=== PATIENT | female | born 1965 | race Caucasian/White ===

== ENCOUNTER 2016-09-23 16:40 | Emergency (ER) | payer BC ==
[~2016-09-23] VITALS: Ht 167.6 cm; Wt 70.3 kg
[~2016-09-23 16:40] MED LIST: ELIMITE 5% CREA60 GM EXT; ELIMITE 5% CREA60 GM TOPIC; MEDROL DOSEPAK4 MG PO; NKM; NORCO 5-325 TA1 EACH PO; TRAMADOL HCL50 MG ORAL
[2016-09-23] MEDS ORDERED: Morphine Sulfate 4mg/ml Inj IVP ONE (17:00)
[2016-09-23] MEDS ORDERED: Famotidine 20 MG/ 2ML VIAL IVP ONE (17:00)
[2016-09-23 17:24] LABS: BASOPHILS % (AUTO) 0.9 % (0.0-2.0); EOSINOPHILS % (AUTO) 1.6 % (0.0-3.0); LYMPHOCYTES % (AUTO) 24.4 % (20.0-45.0); MEAN CORPUSCULAR HEMOGLOBIN 31.5 PG (27.0-31.0); MEAN CORPUSCULAR HGB CONC 33.8 G/DL (32.0-36.0); MEAN CORPUSCULAR VOLUME 93 FL (80-99); MEAN PLATELET VOLUME 9.8 FL (6.5-10.1); NEUTROPHILS % (AUTO) 67.2 % (45.0-75.0); PLATELET COUNT 234 K/UL (150-450); RED BLOOD COUNT 4.54 M/UL (4.20-5.40); RED CELL DISTRIBUTION WIDTH 13.2 % (11.6-14.8); WHITE BLOOD COUNT 10.8 K/UL (4.8-10.8)
[2016-09-23] MEDS ORDERED: Ketorolac 30mg Inj ONE (17:27)
[2016-09-23] MEDS ORDERED: Ketorolac 30mg Inj IV ONE (17:30)
[2016-09-23 17:40] LABS: ALANINE AMINOTRANSFERASE 12 U/L (3-33); ALBUMIN/GLOBULIN RATIO 1.8 (1.0-2.7); ANION GAP 17 (5-15); ASPARTATE AMINO TRANSFERASE 11 U/L (5-40); CALCIUM 9.4 mg/dL (8.6-10.2); CARBON DIOXIDE 24 mEQ/L (20-30); CHLORIDE 98 mEQ/L (98-107); CREATININE 0.8 mg/dL (0.5-0.9); GLOMERULAR FILTRATION RATE > 60 mL/min (>60); HEMOLYSIS 4; LIPASE 27 U/L (< 60); POTASSIUM 3.8 mEQ/L (3.4-4.9); SODIUM 139 mEQ/L (135-145); TOTAL PROTEIN 7.4 g/dL (6.6-8.7); TROPONIN I < 0.30 ng/mL (<=0.30)
[2016-09-23 17:58] LABS: APPEARANCE,URINE CLEAR; KETONES,URINE NEGATIVE (NEGATIVE); NITRITE,URINE NEGATIVE (NEGATIVE); PH,URINE 6 (4.5-8.0); PROTEIN,URINE NEGATIVE (NEGATIVE); UROBILINOGEN,URINE NORMAL MG/DL (0.0-1.0)
[2016-09-23 18:02] LABS: LEUKOCYTE ESTERASE ,URINE NEGATIVE (NEGATIVE)
[2016-09-23 19:01] VITALS: BP 118/75
[2016-09-23 20:47] VITALS: BP 115/79
--- NOTE | 2016-09-23 20:51 | Emergency Room Report ---
History of Present Illness General Chief Complaint: Abdominal Pain Source: Patient, Medical Record Present Illness HPI 51YO F with 1-2 days generalized abd pain without nausea/vomiting/diarrhea/fever /chills. Took ibuprofen without improvement. States Tylenol doesnt work. Had this previously last year, CT showed cholelithiasis. Didnt followup with GenSurg. Denies other medical problems. Allergies: Uncoded Allergies: CT contrast (Allergy, Unknown, Itching, 11/22/15) Patient History Past Medical History: other - Cholelithiasis Past Surgical History: none Pertinent Family History: none Social History: Denies: alcohol use, drug use, smoking Last Menstrual Period: 08/2016 Now: No : 0 Para: 0 Immunizations: UTD Reviewed Nursing Documentation: PMH: Agreed, PSxH: Agreed Review of Systems All Other Systems: negative except mentioned in HPI Physical Exam Vital Signs Date Time Temp Pulse Resp B/P Pulse Ox O2 Delivery O2 Flow Rate FiO2 09/23/16 16:49 98.4 88 16 126/56 100 Room Air Sp02 EP Interpretation: reviewed, normal General Appearance: normal inspection, well appearing, no apparent distress, alert, GCS 15, non-toxic Head: normocephalic, atraumatic Eyes: bilateral eye EOMI, bilateral eye PERRL ENT: normal ENT inspection, hearing grossly normal, normal voice Neck: normal inspection, full range of motion, supple, no bony tend Respiratory: normal inspection, lungs clear, normal breath sounds, no respiratory distress, no retraction, no wheezing Cardiovascular #1: regular rate, rhythm, no edema Gastrointestinal: normal inspection, normal bowel sounds, soft, no guarding, no hernia, other - epigastric ttp. No rebound or guarding Genitourinary: no CVA tenderness Musculoskeletal: normal inspection, back normal, normal range of motion, Deanna' s Sign negative Neurologic: normal inspection, alert, oriented x3, responsive, conductor/brakeman III-XII nml as tested, motor strength/tone normal, speech normal Psychiatric: normal inspection, judgement/insight normal, mood/affect normal Skin: normal inspection, normal color, no rash Medical Decision Making Diagnostic Impression: Primary Impression: Abdominal pain Qualified Codes: R10.13 - Epigastric pain ER Course CT: ?GB wall thickening. + stones Sono: No cholecystitis on tech report No leuks. Afebrile. Likely just cholelithiasis, +/-GERD Will Rx Pepcid Patient also requesting 2 days off from work Advised to F/up with PMD for gen-surg referral for cholelithiasis DC home Last Vital Signs Date Time Temp Pulse Resp B/P Pulse Ox O2 Delivery O2 Flow Rate FiO2 09/23/16 20:47 98.3 64 15 115/79 99 Room Air Status: improved Disposition: AGAINST MEDICAL ADVICE Scripts Methocarbamol* (ROBAXIN-750*) 750 Mg Tablet 750 MG PO TID, #30 TAB 0 Refills Prov: THERESA OLSON M.D. 09/23/16 Famotidine (PEPCID) 20 Mg Tablet 20 MG ORAL BID, #60 TAB 0 Refills Prov: THERESA OLSON M.D. 09/23/16 Referrals: NON PHYSICIAN (PCP) THERESA OLSON M.D. Sep 23, 2016 20:51
[2016-09-23] MEDS ORDERED: PEPCID20 MG ORAL (20:55)
[2016-09-23] MEDS ORDERED: ROBAXIN-750750 MG PO (20:59)
[2016-09-23 21:06] VITALS: BP 115/79
--- NOTE | 2016-09-24 09:07 | Diagnostic Imaging Report ---
Indication: Abdominal pain Technique: Ultrasound of the abdomen. Comparison: CT abdomen and pelvis 10/03/16 Findings: The pancreas is incompletely visualized. Visualized portions are unremarkable. Liver measures 17.8 cm and demonstrates normal echogenicity. No focal liver lesions are identified. Visualized portions of the main portal vein and the hepatic veins are grossly unremarkable although incompletely evaluated. Gallstones are present. Gallbladder wall thickness is normal. The common bile duct measures 7 mm. Bilateral kidneys demonstrate normal echogenicity. No focal renal lesions are seen. There is no hydronephrosis. No echogenic renal stones are identified. The spleen is normal in size and echogenicity. The visualized aorta is normal in caliber. Visualized portions of the inferior vena cava are unremarkable. Impression: Cholelithiasis. Gallbladder wall thickness within normal limits. Sonographic Chavis sign reportedly positive. Clinical correlation recommended.
--- NOTE | 2016-09-24 10:05 | Diagnostic Imaging Report ---
Indication: Abdominal pain Technique: CT scan of the abdomen and pelvis utilizing automated exposure control without intravenous or oral contrast. Axial, sagittal and coronal images were obtained. CT dose: Total DLP 630 mGycm; CTDI vol 12.8 mGy Comparison: 11/22/15 Findings: Evaluation of the solid organs is limited without intravenous contrast material. Gallstones are present with mild gallbladder wall thickening. The adrenal glands, spleen and pancreas are unremarkable. The kidneys are unremarkable. The small bowel loops are normal in caliber. There is a small hiatal hernia. The appendix is normal. There is trace fluid in the pelvis. Uterus and adnexa appear grossly unremarkable. The bladder is grossly unremarkable. The abdominal aorta is normal in caliber. Degenerative changes of the spine are present. Impression: Cholelithiasis with mild apparent gallbladder wall thickening. Clinical correlation recommended for cholecystitis. HIDA scan recommended for further evaluation as indicated. Trace fluid in the pelvis. Normal appendix. Other findings as above. Findings are concordant with the preliminary report. The CT scanner at [facility] is accredited by the [employer] and the scans are performed using protocols designed to limit radiation exposure to as low as reasonably achievable to attain images of sufficient resolution adequate for diagnostic evaluation.
--- NOTE | 2016-09-28 16:18 | Cardiology Report ---
APPROVED REPORT EKG Measurement Heart [id number] Normal sinus rhythm Cannot rule out Anterior infarct, age undetermined Abnormal ECG
== END 2016-09-23 21:06 | disposition home or self-care (01) ==
LOC: EMR 17:22
DX: R10.84 Generalized abdominal pain (principal); R11.2 Nausea with vomiting, unspecified; K80.20 Calculus of gallbladder without cholecystitis without obstruction
CPT/HCPCS: 36415; 74176; 76700; 80053; 81003; 81025; 83690; 84484; 85025; 93005; 96374; 96375; 99284; J1885; J2405; S0028

== ENCOUNTER 2016-11-09 05:44 | Observation (INO) | payer BC ==
[~2016-11-09] VITALS: Ht 167.6 cm; Wt 69.9 kg
[2016-11-09] VITALS (19 sets, daily range): BP systolic 112–152; BP diastolic 66–91
[~2016-11-09 05:44] MED LIST changes: +PEPCID20 MG ORAL; +ROBAXIN-750750 MG PO
[2016-11-09] MEDS ORDERED: Bupivacaine w/Epi 0.25% 30ml Vial INJ ONE (06:50)
[2016-11-09] MEDS ORDERED: Iothalamate Meglumine 60% 30ML INJ ONE (06:50)
[2016-11-09] MEDS ORDERED: LR 1000ml 1,000 ML IV SCH ×2 (07:05→15:15)
[2016-11-09] MEDS ORDERED: Propofol 10mg/ml 20ml IV ONE (07:30)
[2016-11-09] MEDS ORDERED: Neostigmine 1mg/ml 10ml Inj ONE (07:30)
[2016-11-09] MEDS ORDERED: LR 1000ml ONE (07:30)
[2016-11-09] MEDS ORDERED: Dexamethasone 4mg/ml vial ONE (07:30)
[2016-11-09] MEDS ORDERED: Nimbex 2mg/ml Inj 10ML IVP ONE (07:30)
[2016-11-09] MEDS ORDERED: Glycopyrrolate 0.2mg/ml 1ml Vial ONE (07:30)
[2016-11-09] MEDS ORDERED: Sterile Water Irrig 1000ml IRRIG ONE (07:30)
[2016-11-09] MEDS ORDERED: fentaNYL 100 mcg/2 mL IV ONE (07:30)
[2016-11-09] MEDS ORDERED: NS Irrig 1000ml ONE (07:30)
[2016-11-09] MEDS ORDERED: Lidocaine 1% MPF 10mg/ml 5ml ONE (07:30)
--- NOTE | 2016-11-09 07:38 | Pre-Procedure Note/Attestation ---
Pre-Procedure Note/Attestation Complete Prior to Procedure Planned Procedure: not applicable Procedure Narrative: laparoscopic cholecystectomy, possible open possible intraoperative cholangiogram Indications for Procedure Pre-Operative Diagnosis: abdominal pain chololithiasis Attestation I attest that I discussed the nature of the procedure; its benefits; risks and complications; and alternatives (and the risks and benefits of such alternatives ), prior to the procedure, with the patient (or the patient's legal corporate sales representative). I attest that, if there was a reasonable possibility of needing a blood transfusion, the patient (or the patient's legal corporate sales representative) was given the [facility] standardized written summary, pursuant to the [place] Blood Safety Act ([place] Health and Safety Code # 1645, as amended). I attest that I re-evaluated the patient just prior to the surgery and that there has been no change in the patient's H&P, except as documented below:none WOOD KRUSE November 09, 2016 07:38
[2016-11-09] MEDS ORDERED: LR 1000ml 1,000 ML IVLG SCH (08:11)
--- NOTE | 2016-11-09 08:11 | Anethesia Preoperative Eval ---
Anesthesia Pre-op PMH/ROS General Date of Evaluation: November 09, 2016 Time of Evaluation: 07:31 Anesthesiologist: Samuel ASA Score: ASA 2 Mallampati Score Class I : Soft palate, uvula, fauces, pillars visible Class II: Soft palate, uvula, fauces visible Class III: Soft palate, base of uvula visible Class IV: Only hard plate visible Mallampati Classification: Class II Surgeon: Shiva Diagnosis: Abd Pain Surgical Procedure: Laparoscopic Cholecystectomy Anesthesia History: none Family History: no anesthesia problems Allergies: Uncoded Allergies: CT contrast (Allergy, Severe, Itching, 11/09/16) itching,LIPS SWOLLEN Medications: see eMAR Past Medical History Gastrointestinal/Genitourinary: Reports: GERD, other - Menopause 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 Exam Physician Exam Last Vital Signs Date Time Temp Pulse Resp B/P Pulse Ox O2 Delivery O2 Flow Rate FiO2 11/09/16 07:18 98.1 69 20 112/66 98 Room Air Constitutional: NAD Neurologic: CN 2-12 intact Cardiovascular: RRR Respiratory: CTA Gastrointestinal: S/NT/ND Airway Exam Mallampati Score: Class II MO: full ROM: full Teeth: intact Anesthesia Pre-op A/P Labs Urine Test Test 11/09/16 06:50 Urine HCG, Qualitative Negative Risk Assessment & Plan Assessment: ASA 2 Plan: GA, BIS, Glidescope Status Change Before Surgery: No Pre-Antibiotics Dru Grams Ancef IV Given Within 1 Hr of Incision: Yes Time Given: 07:46 Nik Baker MD November 09, 2016 08:11
--- NOTE | 2016-11-09 08:14 | Immediate Post-Op Evaluation ---
Immediate Post-Op Evalulation Immediate Post-Op Evalulation Procedure: Laparoscopic Cholecystectomy Date of Evaluation: November 09, 2016 Time of Evaluation: 09:20 IV Fluids: 900 LR Blood Products: 0 Estimated Blood Loss: 10 Urinary Output: 0 Blood Pressure Systolic: 144 Blood Pressure Diastolic: 78 Pulse Rate: 72 Respiratory Rate: 16 O2 Sat by Pulse Oximetry: 99 Temperature (Fahrenheit): 97.7 Pain Score (1-10): 2 Nausea: No Vomiting: No Complications 0 Patient Status: awake, reacts, patent, extubated, none Hydration Status: adequate Dru Grams Ancef IV Given Within 1 Hr of Incision: Yes Time Given: 07:46 Nik Baker MD November 09, 2016 08:14
[2016-11-09] MEDS ORDERED: Ketorolac 60mg Inj IV PRN (08:15)
[2016-11-09] MEDS ORDERED: Metoclopramide 10mg/2ml Inj IVP PRN (08:15)
[2016-11-09] MEDS ORDERED: Hydromorphone 0.5mg/0.5ml inj IVP PRN ×2 (08:15→18:01)
[2016-11-09] MEDS ORDERED: Midazolam 2mg/2ml Inj IVP PRN (08:15)
[2016-11-09] MEDS ORDERED: Meperidine 25mg/0.5ml Inj IV PRN (08:15)
[2016-11-09] MEDS ORDERED: Norco 7.5mg/325mg tab ORAL PRN (08:15)
[2016-11-09] MEDS ORDERED: fentaNYL 100 mcg/2 mL IV PRN (08:15)
[2016-11-09] MEDS ORDERED: Ketorolac 30mg Inj IV PRN (08:15)
[2016-11-09] MEDS ORDERED: DiphenhydrAMINE 50mg/ml Inj IVP PRN (08:15)
[2016-11-09] MEDS ORDERED: Oxycodone/Acetaminophen 5-325 ORAL PRN (08:15)
[2016-11-09] MEDS ORDERED: Norco 5mg/325mg tab ORAL PRN (08:15)
[2016-11-09] MEDS ORDERED: LORazepam Inj 2mg/ml 1ml IV PRN (08:15)
[2016-11-09] MEDS ORDERED: Atropine Inj 1mg/10ml Syr IV PRN (08:15)
[2016-11-09] MEDS ORDERED: Surgicel 4in x 8in TOPIC ONE (08:43)
--- NOTE | 2016-11-09 09:14 | Brief Operative Note ---
Immediate Post Operative Note Operative Note Pre-op Diagnosis: abdominal pain chololithiasis Procedure: laparoscopic cholecystectomy Post-op Diagnosis: same Surgeon: adolfo kruse Medical Education Manager: suzan Castellanos Anesthesiologist: Roxanne dougherty Anesthesia: general, local Specimen: yes Complications: none Estimated Blood Loss: minimal Drains: none Implant(s) used?: No WOOD KRUSE November 09, 2016 09:14
[2016-11-09] MEDS ORDERED: Ketorolac 60mg Inj ONE (09:49)
[2016-11-09] MEDS ORDERED: Morphine Sulfate 4mg/ml Inj IVP PRN (15:15)
[2016-11-09] MEDS: D5 1/2NS w/KCl 20mEq 1,000 ML IV SCH (17:59)
[2016-11-09] MEDS ORDERED: Morphine Sulfate 2mg/ml Inj IVP PRN (18:01)
[2016-11-09] MEDS ORDERED: HYDROmorphone 1mg/ml Carpuject IVP PRN (18:01)
[2016-11-09] MEDS: Norco 5mg/325mg tab ORAL PRN (20:52)
--- NOTE | 2016-11-09 23:32 | Operative Note - Dictated ---
DATE OF OPERATION: 11/09/2016 SURGEON: Vito Shannon M.D. FOIL CUTTER PHYSICIAN: Edward Castellanos M.D. ANESTHESIOLOGIST: Nik Baker M.D. PREOPERATIVE DIAGNOSIS: Abdominal pain and cholelithiasis. POSTOPERATIVE DIAGNOSIS: Abdominal pain and cholelithiasis. PROCEDURE: Laparoscopic cholecystectomy. INDICATIONS: This is a very pleasant 51-year-old woman seen in our office referred by her primary physician because of recurrent episodes of right upper quadrant pain. The patient has had several ER visits. The ultrasound confirmed the presence of multiple gallstones. No history of pancreatitis or jaundice. The patient has been explained in detail the pathophysiology, indications for surgery, risks, benefits, complications including bleeding, infection, anesthetic complications, possible need to convert to an open procedure, possible injury to organs, or blood vessels and need for further treatment. She understands and agrees to proceed. OPERATIVE FINDINGS: The patient had a distended gallbladder with several adhesions to the omentum. The cystic duct was of normal caliber. Liver, stomach, and small bowel are normal. PROCEDURE IN DETAIL: The patient was identified in the preoperative holding area. The surgery was discussed. She was brought into the operating room just under general anesthesia endotracheal intubation. The abdomen was prepped with Betadine and draped in a sterile manner. Time-out was performed confirming the patient's position, procedure, anesthesia, antibiotic, and allergy status. An infraumbilical incision was made, through which was passed a Veress needle, checked with irrigation, aspiration, water drip test, connected to a CO2 insufflator, inflated to 15 mmHg, taking 4 liters to achieve this. The Veress needle was removed. The aperture was enlarged. A 5 mm trocar was placed through the abdominal cavity through which we passed a 30-degree laparoscope. The entire abdomen was panscoped. Then the attention was focused on the right upper quadrant under laparoscopic vision. A second trocar 10 mm was placed in the subxiphoid position and two 5 mm trocars were placed in the right flank. The gallbladder grasped with grasper and elevated over the edge of the liver. Multiple adhesions of the omentum to the gallbladder and liver were carefully lysed. Now attention was placed on the neck of the gallbladder. Careful dissection of the cystic duct was identified and skeletonized and traced from the gallbladder to the common bile duct. It was triply clipped and divided. The cystic artery was similarly triply clipped and divided. The gallbladder was then dissected free from gallbladder fossa and placed in endo pouch bag delivered to the subxiphoid incision. Multiple stones were recovered from the gallbladder. At this point, the right upper quadrant was copiously irrigated. The gallbladder fossa was carefully examined making sure that any bleeding points were carefully cauterized after making sure there is no active bleeding, and all of the irrigant aspirated to make sure that there is no active bleeding. The strips of Surgicel gauze was placed in the gallbladder fossa. The scope was then placed in the upper trocar and the entire abdomen was once again panscoped to make sure there was no inadvertent bowel or blood vessel injury, none was seen. The trocars were then removed under laparoscopic vision making sure that there is no bleeding and pneumoperitoneum released. The subxiphoid incision was closed with 0 Vicryl on the fascia. All the incisions were closed with 4-0 Vicryl then reinforced with Steri-Strips and dry sterile dressing. A total of 20 mL of 0.25% Marcaine locally infiltrated per patient's postoperative comfort. Blood loss was less than 20 mL. The patient tolerated the procedure well. Vito Shannon M.D. DR: KADEN JOB#: [id number] CC:
[2016-11-10] VITALS: BP 139/78
[2016-11-10 04:30] VITALS: BP 125/76
[2016-11-10] MEDS: D5 1/2NS w/KCl 20mEq 1,000 ML IV SCH (06:35)
[2016-11-10 08:00] VITALS: BP 133/70
[2016-11-10] MEDS: Norco 5mg/325mg tab ORAL PRN (08:07)
--- NOTE | 2016-11-10 08:22 | General Progress Note ---
Progress Note Progress Note Surgery: patient seen and examined at bedside. doing very well. states pain much improved. still some incisional tenderness as anticipated. no n/v/f/c. tolerating diet. ambulatory. ready to go home low fat diet as tolerated Rx as written ambulate and oob no lifting >15lbs for 4-6 weeks follow up with dr. riley in 1 week. d/c home today Edward Castellanos November 10, 2016 08:22
[2016-11-10 10:15] LABS: BASOPHILS % (AUTO) 0.4 % (0.0-2.0); EOSINOPHILS % (AUTO) 0.2 % (0.0-3.0); LYMPHOCYTES % (AUTO) 18.1 % (20.0-45.0); MEAN CORPUSCULAR HEMOGLOBIN 31.1 PG (27.0-31.0); MEAN CORPUSCULAR HGB CONC 33.7 G/DL (32.0-36.0); MEAN CORPUSCULAR VOLUME 92 FL (80-99); MEAN PLATELET VOLUME 9.4 FL (6.5-10.1); NEUTROPHILS % (AUTO) 76.3 % (45.0-75.0); PLATELET COUNT 221 K/UL (150-450); RED BLOOD COUNT 4.14 M/UL (4.20-5.40); WHITE BLOOD COUNT 14.2 K/UL (4.8-10.8)
[2016-11-10 10:23] LABS: ALANINE AMINOTRANSFERASE 147 U/L (3-33); ALBUMIN/GLOBULIN RATIO 1.3 (1.0-2.7); ANION GAP 13 (5-15); ASPARTATE AMINO TRANSFERASE 94 U/L (5-40); CALCIUM 8.8 mg/dL (8.6-10.2); CARBON DIOXIDE 25 mEQ/L (20-30); CHLORIDE 101 mEQ/L (98-107); CREATININE 0.6 mg/dL (0.5-0.9); GLOMERULAR FILTRATION RATE > 60 mL/min (>60); HEMOLYSIS 2; POTASSIUM 3.7 mEQ/L (3.4-4.9); SODIUM 139 mEQ/L (135-145); TOTAL PROTEIN 6.4 g/dL (6.6-8.7)
== END 2016-11-10 10:43 | disposition home or self-care (01) ==
LOC: SUR 05:44 → INTOOBSV 15:40 → SDSOVERFLO 15:40 → 3E 16:45 → OBSVTOIN 17:12 → INTOOBSV 17:12
DX: K80.10 Calculus of gallbladder with chronic cholecystitis without obstruction (principal); K21.9 Gastro-esophageal reflux disease without esophagitis; Z91.041 Radiographic dye allergy status
CPT/HCPCS: 36415; 47562; 80053; 81025; 85025; J0690; J1100; J1170; J2250; J2270; J2405; J2704; J2710; J3010; J7120; 94003; 94150; G0378